=== PATIENT | female | born 1930 | race Caucasian/White ===

== ENCOUNTER → 2016-04-23 | Outpatient (CLI) | payer OTHER, MEDICARE | LOC: MMPC 09:00 | DX: Z79.01 Long term (current) use of anticoagulants (principal); Z51.81 Encounter for therapeutic drug level monitoring; I48.91 Unspecified atrial fibrillation | CPT/HCPCS: 85610 ==

== ENCOUNTER → 2016-05-08 | Outpatient (CLI) | payer OTHER, MEDICARE ==
[2016-05-08 17:31] LABS: BUN/CREATININE RATIO 23.75 (6-20); CALCIUM 10.5 mg/dL (8.7-10.7); CREATININE 0.8 mg/dL (0.50-1.20); POTASSIUM 5.1 meq/L (3.8-5.2)
[2016-05-08 17:33] LABS: HEMOGLOBIN A1C 7.55 % (4.2-6.0); MEAN BLOOD GLUCOSE (CALC) 165.415 mg/dL
== END ==
LOC: MOB LAB 15:57
DX: E11.9 Type 2 diabetes mellitus without complications (principal); I10 Essential (primary) hypertension
CPT/HCPCS: 36415; 80048; 83036

== ENCOUNTER → 2016-05-21 | Outpatient (CLI) | payer OTHER, MEDICARE | LOC: MMPC 09:00 | DX: Z79.01 Long term (current) use of anticoagulants (principal); Z51.81 Encounter for therapeutic drug level monitoring; I48.91 Unspecified atrial fibrillation | CPT/HCPCS: 85610 ==

== ENCOUNTER → 2016-06-18 | Outpatient (CLI) | payer OTHER, MEDICARE | LOC: MMPC 09:00 | DX: Z79.01 Long term (current) use of anticoagulants (principal); Z51.81 Encounter for therapeutic drug level monitoring; I48.91 Unspecified atrial fibrillation | CPT/HCPCS: 85610 ==

== ENCOUNTER → 2016-06-29 | Outpatient (CLI) | payer OTHER, MEDICARE | LOC: MMPC 11:11 | PROVIDERS: ATTEND Physician Assistant | DX: R23.3 Spontaneous ecchymoses (principal) | CPT/HCPCS: 99212; G0463 ==

== ENCOUNTER → 2016-07-05 | Outpatient (CLI) | payer OTHER, MEDICARE | LOC: MMPC 09:00 | DX: Z79.01 Long term (current) use of anticoagulants (principal); Z51.81 Encounter for therapeutic drug level monitoring; I48.91 Unspecified atrial fibrillation | CPT/HCPCS: 85610 ==

== ENCOUNTER → 2016-07-30 | Outpatient (CLI) | payer OTHER, MEDICARE ==
--- NOTE | 2016-07-30 10:32 | DI ---
PA /LATERAL CHEST X-RAY, 07/30/2016 9:54 AM : Clinical History: Cough. Previous Exam: 09/20/2015. There is no acute soft tissue or bony abnormality. There is cardiomegaly. The vessels are more promin ent, plethoric, and hazier than on the previous film consistent with mild early CHF. Lungs are clear. Mediastinal structures are normal. There are no pulmonary nodules. Readin. There is no acute infiltrate or effusion. 2. Cardiomegaly with what probably represents early CHF.
== END ==
LOC: MOB RAD 09:56
PROVIDERS: ATTEND Physician Assistant
DX: R05 Cough (principal); I51.7 Cardiomegaly; Z79.01 Long term (current) use of anticoagulants; Z51.81 Encounter for therapeutic drug level monitoring; I48.91 Unspecified atrial fibrillation
CPT/HCPCS: 71020; 85610; 99213

== ENCOUNTER → 2016-08-07 | Outpatient (CLI) | payer OTHER, MEDICARE ==
[2016-08-07 18:38] LABS: HEMOGLOBIN A1C 6.88 % (4.2-6.0)
== END ==
LOC: MOB LAB 15:49
DX: E11.9 Type 2 diabetes mellitus without complications (principal); I48.91 Unspecified atrial fibrillation; E78.5 Hyperlipidemia, unspecified; I10 Essential (primary) hypertension; L98.0 Pyogenic granuloma; E03.9 Hypothyroidism, unspecified; M10.9 Gout, unspecified; K21.9 Gastro-esophageal reflux disease without esophagitis; B97.89 Other viral agents as the cause of diseases classified elsewhere
CPT/HCPCS: 36415; 83036; 99213; G0463

== ENCOUNTER → 2016-08-23 | Outpatient (CLI) | payer OTHER, MEDICARE | LOC: MMPC 09:00 | PROVIDERS: ATTEND Physician Assistant Medical | DX: M79.672 Pain in left foot (principal); R60.0 Localized edema | CPT/HCPCS: 99213; G0463 ==

== ENCOUNTER → 2016-08-27 | Outpatient (CLI) | payer OTHER, MEDICARE | LOC: MMPC 09:00 | DX: Z79.01 Long term (current) use of anticoagulants (principal); Z51.81 Encounter for therapeutic drug level monitoring; I48.91 Unspecified atrial fibrillation | CPT/HCPCS: 85610 ==

== ENCOUNTER → 2016-09-24 | Outpatient (CLI) | payer OTHER, MEDICARE | LOC: MMPC 09:00 | DX: Z79.01 Long term (current) use of anticoagulants (principal); Z51.81 Encounter for therapeutic drug level monitoring; I48.91 Unspecified atrial fibrillation | CPT/HCPCS: 85610 ==

== ENCOUNTER → 2016-10-22 | Outpatient (CLI) | payer OTHER, MEDICARE | LOC: MMPC 09:00 | DX: Z79.01 Long term (current) use of anticoagulants (principal); Z51.81 Encounter for therapeutic drug level monitoring; I48.91 Unspecified atrial fibrillation | CPT/HCPCS: 85610 ==

== ENCOUNTER → 2016-11-06 | Outpatient (CLI) | payer OTHER, MEDICARE | LOC: MMPC 11:11 | PROVIDERS: ATTEND Physician Assistant | DX: L97.321 Non-pressure chronic ulcer of left ankle limited to breakdown of skin (principal); Z79.01 Long term (current) use of anticoagulants | CPT/HCPCS: 99213 ==

== ENCOUNTER → 2016-11-08 | Outpatient (CLI) | payer OTHER, MEDICARE ==
[2016-11-08 13:41] LABS: BUN/CREATININE RATIO 26.25 (6-20); CALCIUM 10.2 mg/dL (8.7-10.7); SERUM ALBUMIN 3.9 g/dL (3.5-4.8)
--- NOTE | 2016-11-08 13:51 | DI ---
HISTORY: Fall. TECHNIQUE: Contiguous axial unenhanced images of the brain were obtained from the skull base through the vertex. The images were then submitted for interpretation. FINDINGS: There is mild periventricular and subcortical white matter lucency. There is mild atrophy. The brain parenchyma is otherwise unremarkable in appearance and without definite focal attenuation a bnormality. Cerebral sulci have a normal appearance. Posterior fossa structures are unremarkable. The ventricles appear normal. There is no evidence of mass effect, large vessel infarction or hemorrhage, or extraaxial collection. The paranasal sinuses and mastoids air cells appear clear. Visualized orbits are normal. No osseous lesions seen. There is no displaced skull fracture demonstrated in the axial plane. IMPRESSION: 1. 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 Mild atrophy. Otherwise unremarkable CT examination of the head.
--- NOTE | 2016-11-08 13:53 | DI ---
HISTORY: Fall. TECHNIQUE: Contiguous axial unenhanced images of the facial bones were obtained and submitted for in terpretation. FINDINGS: Minimal right maxillary sinus disease. No acute fracture. Orbits and remaining sinuses inta ct. No air fluid levels identified. IMPRESSION: 1. No acute fracture.
[2016-11-08 14:22] LABS: HEMOGLOBIN 12.3 g/dL (12.0-16.0); RED BLOOD COUNT 4.69 10^6/uL (4.20-5.40)
[2016-11-08 14:23] LABS: BASOPHILS # (AUTO) 0.01 10*3/UL; BASOPHILS % (AUTO) 0.1 % (0-1); EOSINOPHILS # (AUTO) 0.25 10*3/UL; HEMATOCRIT 40.2 % (37.0-47.0); LYMPHOCYTES # (AUTO) 1.75 10*3/uL; MEAN CORPUSCULAR HEMOGLOBIN 26.2 PG (27-31); MEAN CORPUSCULAR HGB CONC 30.6 g/dL (33-37); MEAN CORPUSCULAR VOLUME 85.7 FL (81-99); MEAN PLATELET VOLUME 10.7 FL (7.4-12.2); MONOCYTES # (AUTO) 0.69 10*3/UL (0.3-0.8); MONOCYTES % (AUTO) 8.2 % (5-15); NEUTROPHILS # (AUTO) 5.69 10*3/UL; NEUTROPHILS % (AUTO) 67.8 % (50-80); PLATELET MORPHOLOGY COMMENT NORMAL MORPHOLOGY (NORM); RBC MORPHOLOGY COMMENT NORMAL MORPHOLOGY (NORM); WBC MORPHOLOGY COMMENT NORMAL MORPHOLOGY (NORM)
--- NOTE | 2016-11-08 16:28 | DI ---
CLINICAL HISTORY: Fall. Pain throughout the hand and bruising. PREVIOUS EXAM: None available. FINDINGS/TECHNIQUE: 3 views of the right hand are obtained, and demonstrate diffuse osteopenia. Advan armando erosive osteoarthritis is noted probably involving the distal interphalangeal joints of the middl e interphalangeal joints. There is no soft tissue calcification. There is significant deformity of the joints. The gated fluid is not well evaluated, but no gross fractures are identified. IMPRESSION: 1. Diffuse osteopenia and erosive osteoarthritis. 2. No acute fractures. NOTE: If there is snuffbox tenderness, or if pain persists or worsens, consider followup imaging in 7 -10 days to rule out an occult fracture.
--- NOTE | 2016-11-08 16:30 | DI ---
CLINICAL HISTORY: Fall with bilateral rib pain. PREVIOUS EXAM: None available. 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 There is mild cardiomegaly. There is flattening of the hemidiaphragms. There is no vascular calcification identified. Postsurgical changes are noted of the epigastric regio n. There is no subdiaphragmatic free air. IMPRESSION: 1. No fracture nor pneumothorax identified.
== END ==
LOC: RAD 12:55
PROVIDERS: ATTEND Physician Assistant
DX: S09.90XA Unspecified injury of head, initial encounter (principal); S60.221A Contusion of right hand, initial encounter; R07.89 Other chest pain; R51 Headache; R07.81 Pleurodynia; M15.4 Erosive (osteo)arthritis; S20.219A Contusion of unspecified front wall of thorax, initial encounter; Z79.01 Long term (current) use of anticoagulants; W18.39XA Other fall on same level, initial encounter
CPT/HCPCS: 36415; 70450; 70486; 71020; 73130; 80053; 85025; 85610; 99213; G0463

== ENCOUNTER → 2016-11-15 | Outpatient (CLI) | payer OTHER, MEDICARE | LOC: MMPC 11:11 | DX: R29.6 Repeated falls (principal); E55.9 Vitamin D deficiency, unspecified; E78.5 Hyperlipidemia, unspecified; K21.9 Gastro-esophageal reflux disease without esophagitis; E11.9 Type 2 diabetes mellitus without complications; N18.2 Chronic kidney disease, stage 2 (mild); I48.91 Unspecified atrial fibrillation; N20.0 Calculus of kidney; G47.34 Idiopathic sleep related nonobstructive alveolar hypoventilation; W19.XXXD Unspecified fall, subsequent encounter | CPT/HCPCS: 99212; G0463 ==

== ENCOUNTER → 2016-11-19 | Outpatient (CLI) | payer OTHER, MEDICARE | LOC: MMPC 09:00 | DX: Z79.01 Long term (current) use of anticoagulants (principal); Z51.81 Encounter for therapeutic drug level monitoring; I48.91 Unspecified atrial fibrillation | CPT/HCPCS: 85610 ==

== ENCOUNTER → 2016-12-12 | Outpatient (CLI) | payer OTHER, MEDICARE ==
--- NOTE | 2016-12-12 16:58 | DI ---
RIGHT HAND, 12/12/2016 3:57 PM: Clinical History: Right hand pain. Previous Exam: 11/08/2016. 3 views are submitted. There is a fracture in the proximal fourth of the proximal phalanx of the ring finger with approximately 20-25 degrees of dorsal angulation of the distal fracture fragment. Review of the previous study shows that this was not evident at that time. There is diffuse osteoporosis. S evere osteoarthritic changes are present in the PIP and DIP joints of the second through fifth finger s. Moderately severe arthritic change is present in the IP joint of the common and all of the metacar pophalangeal joints as well as the triscaphe joint. Readin. There is a fracture through the proximal fourth of the proximal phalanx of the ring finger. The d istal fracture fragment shows 15 degrees medial angulation and 20-25 degrees dorsal angulation of the distal fracture fragment. Review of the prior study shows that this fracture was not present at that time. 2. Severe osteoarthritic changes of the PIP and DIP joints of the index through little fingers and m oderate arthritic change of the IP joint of the thumb, all of the metacarpophalangeal joints, and the triscaphe joint. 3. Severe osteoporosis.
[2016-12-12 18:05] LABS: HEMOGLOBIN A1C 7.37 % (4.2-6.0)
== END ==
LOC: MOB RAD 16:22
DX: M79.641 Pain in right hand (principal); S62.644A Nondisplaced fracture of proximal phalanx of right ring finger, initial encounter for closed fracture; M19.041 Primary osteoarthritis, right hand; E11.9 Type 2 diabetes mellitus without complications
CPT/HCPCS: 36415; 73130; 83036